=== PATIENT | male | born 1940 | race Hispanic/Latino ===

== ENCOUNTER 2016-11-18 16:54 | Emergency (ER) | payer MEDICARE, OTHER ==
[2016-11-18 16:58] VITALS: BMI 36.0
[2016-11-18] MEDS ORDERED: Sodium Chloride 0.9% 1,000 ML IV SCH (17:15)
[2016-11-18 17:16] VITALS: BP 159/101; PULSE 86; RESP 20; TEMP 98.8; O2SAT 100
[2016-11-18 17:20] LABS: ADD MANUAL DIFF? NO
[2016-11-18 17:32] LABS: BASO # 0.01 K/mm3 (0.0-2.0); BASO % 0.1 % (0.0-3.0); EOS # 0.5 (0.0-0.7); EOS % 3.8 % (1.5-5.0); GRAN # 9.23 (1.4-6.5); GRAN % 77.8 % (50.0-68.0); HEMATOCRIT 35.5 % (42.0-52.0); LYMPH # 1.3 (1.2-3.4); LYMPH % 10.7 % (22.0-35.0); MEAN CELL VOLUME 90.8 fL (80.0-105.0); MEAN CORPUSCULAR HEMOGLOBIN 30.7 pg (25.0-35.0); MEAN CORPUSCULAR HGB CONC 33.8 g/dl (31.0-37.0); MEAN PLATELET VOLUME 10.1 fl (7.0-11.0); MONO # 0.9 (0.1-0.6); MONO % 7.6 % (1.0-6.0); PLATELET COUNT 190 10^3/uL (120.0-450.0); RED CELL DISTRIBUTION WIDTH 13.9 % (11.5-14.5); WHITE BLOOD COUNT 11.9 10^3/ul (4.5-11.0)
[2016-11-18 17:40] LABS: ALB/GLOB RATIO 1.3 (1.1-1.8); BILIRUBIN,TOTAL 0.9 mg/dL (0.2-1.3); CALCIUM 9.5 mg/dL (8.4-10.5); POTASSIUM 4.7 mmol/L (3.6-5.0); TOTAL PROTEIN 8.2 g/dL (5.8-8.3)
--- NOTE | 2016-11-18 20:12 | ED PDOC ---
Arrival/HPI - General Chief Complaint: Allergic Reaction Time Seen by Provider: 11/18/16 17:08 Historian: Patient - History of Present Illness Narrative History of Present Illness (Text): 11/18/16 17:00 A 75 year old male presents to the emergency department complaining of a reaction to medication he took today. Patient reports he developed body aches and tremors approximately 2 hours after taking Allopurinol. He reports he experienced the exact symptoms 4 weeks ago when taking the same medication. Patient denies any fever, chills, nausea, vomiting, diarrhea, abdominal pain, urinary symptoms, chest pain, shortness of breath or any other complaints. PMD: Dr. Tamayo Time/Duration: Other (Today) Symptom Course: Unchanged Quality: Other Context: Home Past Medical History - Provider Review Nursing Documentation Reviewed: Yes - Infectious Disease Hx of Infectious Diseases: None - Tetanus Immunization Tetanus Immunization: Unknown - Cardiac Hx Cardiac Disorders: Yes Hx Hypertension: Yes - Pulmonary Hx Respiratory Disorders: Yes Hx Chronic Obstructive Pulmonary Disease (COPD): Yes - Neurological Hx Neurological Disorder: Yes (NEUROPATHY) - HEENT Hx HEENT Disorder: Yes (RIGHT EYE MONTHLY INJECTIONS) Hx Cataracts: Yes (WITH SURGERY) - Renal Hx Renal Disorder: Yes Hx Kidney Stones: Yes - Endocrine/Metabolic Hx Endocrine Disorders: Yes Hx Diabetes Mellitus Type 2: Yes - Hematological/Oncological Hx Blood Disorders: No - Integumentary Hx Dermatological Disorder: No - Musculoskeletal/Rheumatological Hx Musculoskeletal Disorders: No Hx Falls: No - Gastrointestinal Hx Gastrointestinal Disorders: No - Genitourinary/Gynecological Hx Genitourinary Disorders: No - Psychiatric Hx Psychophysiologic Disorder: No Hx Depression: No Hx Emotional Abuse: No Hx Physical Abuse: No Hx Substance Use: No - Surgical History Hx Coronary Stent: Yes (X2) - Suicidal Assessment Feels Threatened In Home Enviroment: No Family/Social History - Physician Review Nursing Documentation Reviewed: Yes Family/Social History: No Known Family HX Smoking Status: Former Smoker Hx Alcohol Use: Yes Frequency of alcohol use: Socially Hx Substance Use: No Allergies/Home Meds Allergies/Adverse Reactions: Allergies No Known Allergies Allergy (Verified 11/18/16 16:58) Home Medications: Home Meds Medication Instructions Recorded Confirmed Atorvastatin [Lipitor] 40 mg PO DAILY 02/13/13 11/18/16 Insulin Detemir [Levemir] 15 unit SC BID 02/13/13 11/18/16 Aspirin [Ecotrin] 325 mg PO DAILY 12/20/15 11/18/16 Furosemide [Lasix] 20 mg PO TID 12/20/15 11/18/16 Allopurinol [Zyloprim] 100 mg PO DAILY 11/18/16 11/18/16 Clopidogrel [Plavix] 75 mg PO DAILY 11/18/16 11/18/16 Ezetimibe [Zetia] 10 mg PO DAILY 11/18/16 11/18/16 Gabapentin [Neurontin] 800 mg PO TID 11/18/16 11/18/16 Insulin Aspart [Novolog Flexpen] 0 units SC TID 11/18/16 11/18/16 Metoprolol Tartrate [Lopressor] 50 mg PO BID 11/18/16 11/18/16 amLODIPine [Norvasc] 10 mg PO DAILY 11/18/16 11/18/16 hydrALAZINE [Apresoline] 10 mg PO BID 11/18/16 11/18/16 rOPINIRole [Requip] 0.5 mg PO HS 11/18/16 11/18/16 Review of Systems - Physician Review All systems were reviewed & negative as marked: Yes - Review of Systems Constitutional: Other (Body tremors). absent: Fevers, Night Sweats Respiratory: absent: SOB Cardiovascular: absent: Chest Pain Gastrointestinal: absent: Abdominal Pain, Diarrhea, Nausea, Vomiting Genitourinary Male: absent: Dysuria, Frequency, Hematuria, Urinary Output Changes Musculoskeletal: Myalgias Physical Exam Vital Signs Reviewed: Yes Vital Signs Temp Pulse Resp BP Pulse Ox 11/18/16 16:55 98.8 F 86 20 159/101 H 100 Temperature: Afebrile Blood Pressure: Hypertensive Pulse: Regular Respiratory Rate: Normal Appearance: Positive for: Well-Appearing, Non-Toxic, Comfortable, Other ( Generalized body tremors) Pain Distress: None Mental Status: Positive for: Alert and Oriented X 3 Finger Stick Blood Glucose: 172 - Systems Exam Head: Present: Atraumatic, Normocephalic Pupils: Present: PERRL Extroacular Muscles: Present: EOMI Conjunctiva: Present: Normal Mouth: Present: Moist Mucous Membranes Neck: Present: Normal Range of Motion Respiratory/Chest: Present: Clear to Auscultation, Good Air Exchange. No: Respiratory Distress, Accessory Muscle Use Cardiovascular: Present: Regular Rate and Rhythm, Normal S1, S2. No: Murmurs Abdomen: Present: Normal Bowel Sounds. No: Tenderness, Distention, Peritoneal Signs Back: Present: Normal Inspection Upper Extremity: Present: Normal Inspection. No: Cyanosis, Edema Lower Extremity: Present: Normal Inspection. No: Edema Neurological: Present: GCS=15, CN II-XII Intact, Speech Normal Skin: Present: Warm, Dry, Normal Color. No: Rashes Psychiatric: Present: Alert, Oriented x 3, Normal Insight, Normal Concentration Medical Decision Making ED Course and Treatment: 11/18/16 17:08 Impression: A 75 year old male with body aches and tremors after taking Allopurinol. On evaluation, patient is tremulous. Physical exam unremarkable. Plan: -- EKG -- Labs -- Flexeril, IV fluids and Toradol -- Reassess and disposition Progress Notes: 11/18/16 18:40 On re-evaluation, patient feels better and is in no acute distress. Body aches and tremors have resolved. I have discussed the plan with the patient, who expresses understanding. Patient in agreement with plan to be discharged home. Patient is stable for discharge. Patient was instructed to follow up with physician or return if symptoms worsen or new concerning symptoms arise. - Lab Interpretations Lab Results: 11/18/16 17:05 11/18/16 17:05 Lab Results 11/18/16 17:13: POC Glucose (mg/dL) 172 H 11/18/16 17:05: Sodium 143, Potassium 4.7, Chloride 102, Carbon Dioxide 26, Anion Gap 20, BUN 57 H, Creatinine 2.0 H, Est GFR ( Amer) 40, Est GFR ( Non-Af Amer) 33, Random Glucose 166 H, Calcium 9.5, Total Bilirubin 0.9, AST 48 , ALT 45, Alkaline Phosphatase 101, Total Creatine Kinase 152, Total Protein 8.2 , Albumin 4.5, Globulin 3.6, Albumin/Globulin Ratio 1.3 11/18/16 17:05: WBC 11.9 H D, RBC 3.91, Hgb 12.0 L, Hct 35.5 L, MCV 90.8, MCH 30.7, MCHC 33.8, RDW 13.9, Plt Count 190, MPV 10.1, Gran % 77.8 H, Lymph % (Auto ) 10.7 L, Nolan % (Auto) 7.6 H, Eos % (Auto) 3.8, Baso % (Auto) 0.1, Gran # 9.23 H, Lymph # 1.3, Nolan # 0.9 H, Eos # 0.5, Baso # 0.01 I have reviewed the lab results: Yes - Medication Orders Current Medication Orders: Discontinued Medications Cyclobenzaprine HCl (Flexeril) 10 mg PO STAT STA Stop: 11/18/16 17:28 Last Admin: 11/18/16 17:38 Dose: 10 mg Sodium Chloride (Sodium Chloride 0.9%) 1,000 mls @ 100 mls/hr IV .Q10H YOLANDE Last Admin: 11/18/16 17:21 Dose: 100 mls/hr Ketorolac Tromethamine (Toradol) 30 mg IVP STAT STA Stop: 11/18/16 17:16 Last Admin: 11/18/16 17:30 Dose: 30 mg - Scribe Statement The provider has reviewed the documentation as recorded by the Nataliia French Provider Scribe Attestation: All medical record entries made by the Xavieribe were at my direction and personally dictated by me. I have reviewed the chart and agree that the record accurately reflects my personal performance of the history, physical exam, medical decision making, and the department course for this patient. I have also personally directed, reviewed, and agree with the discharge instructions and disposition. Disposition/Present on Arrival - Present on Arrival Any Indicators Present on Arrival: No History of DVT/PE: No History of Uncontrolled Diabetes: No Urinary Catheter: No History of Decub. Ulcer: No History Surgical Site Infection Following: None - Disposition Have Diagnosis and Disposition been Completed?: Yes Diagnosis: Medication side effect Disposition: HOME/ ROUTINE Disposition Time: 18:40 Patient Plan: Discharge Condition: IMPROVED Additional Instructions: Thank you for letting us take care of you today. Your provider was Dr. Stephens. You were treated for medication side effect. The emergency medical care you received today was directed at your acute symptoms. If you were prescribed any medication, please fill it and take as directed. It may take several days for your symptoms to resolve. Return to the Emergency Department if your symptoms worsen, do not improve, or if you have any other problems. Please contact your doctor or call one of the physicians/clinics you have been referred to that are listed on the Patient Visit Information form that is included in your discharge packet. Bring any paperwork you were given at discharge with you along with any medications you are taking to your follow up visit. Our treatment cannot replace ongoing medical care by a primary care provider (PCP) outside of the emergency department. Thank you for allowing the [facility] team to be part of your care today. Stop taking the allopurinol and follow up with your doctor in 1-2 days for re- evaluation. Referrals: Yumiko Lowe MD [Primary Care Provider] - Follow up with primary
--- NOTE | 2016-11-19 22:59 | CARD ---
APPROVED REPORT EKG Measurement Heart [id number] <Conclusion> Normal sinus rhythm Inferior infarct, age undetermined Abnormal ECG
== END 2016-11-18 18:46 | disposition home or self-care (01) ==
LOC: ED 16:54
DX: G25.1 Drug-induced tremor (principal); R52 Pain, unspecified; T50.4X5A Adverse effect of drugs affecting uric acid metabolism, initial encounter; Y92.009 Unspecified place in unspecified non-institutional (private) residence as the place of occurrence of the external cause; I10 Essential (primary) hypertension; J44.9 Chronic obstructive pulmonary disease, unspecified; E11.9 Type 2 diabetes mellitus without complications
CPT/HCPCS: 80053; 82550; 82948; 85025; 93005; 96374; 99282; J1885; J7040

== ENCOUNTER 2018-10-19 08:24 | Outpatient (CLI) | payer MEDICARE, OTHER | END 2018-10-19 08:25 | disposition home or self-care (01) | LOC: LAB 08:24 ==